=== PATIENT | male | born 2000 | race Caucasian/White ===

== ENCOUNTER 2024-04-17 02:09 | Emergency (ER) | payer SELFPAY ==
[~2024-04-17] VITALS: Ht 172.7 cm; Wt 81.0 kg
[2024-04-17 02:12] VITALS: BP 92/59; PULSE 60; RESP 16; TEMP 98.2; O2SAT 98
[2024-04-17] MEDS: SODIUM CHLORIDE 0.9% 1,000 ML IV ONE (03:00)
== END 2024-04-17 05:20 | disposition home or self-care (01) ==
LOC: ER 02:09
DX: F10.129 Alcohol abuse with intoxication, unspecified (principal); F19.90 Other psychoactive substance use, unspecified, uncomplicated; Y90.8 Blood alcohol level of 240 mg/100 ml or more
CPT/HCPCS: 36415; 80320; 96360; 99283; G0480